=== PATIENT | male | born 1990 | race Caucasian/White ===

== ENCOUNTER 2020-07-11 13:52 | Emergency (ER) | payer OTHER ==
[2020-07-11 14:24] LABS: HEMOGLOBIN 15.2 gm/dl (14.0-17.5); RED BLOOD COUNT 5.29 M/UL (4.20-5.50); WHITE BLOOD COUNT 6.9 K/UL (4.5-11.0)
[2020-07-11 14:50] LABS: BUN/CREATININE RATIO 17 (0-10)
== END 2020-07-11 15:26 | disposition home or self-care (01) ==
LOC: ER1 13:52
PROVIDERS: Emergency Medicine
DX: R07.9 Chest pain, unspecified (principal)
CPT/HCPCS: 71045; 80053; 82550; 82553; 83874; 84484; 85025; 85379; 93005; 99285